=== PATIENT | male | born 1970 | race Two or more races ===

== ENCOUNTER → 2016-08-30 | Outpatient (CLI) | payer BC | LOC: M WUC 18:12 | PROVIDERS: ATTEND Physician Assistant | DX: M79.674 Pain in right toe(s) (principal) ==

== ENCOUNTER → 2016-09-02 | Outpatient (CLI) | payer BC ==
[2016-09-02 12:33] LABS: BASO % 0.3 % (0.0-1.0); EOS # 0.1 K/mm3 (0.0-0.50); EOS % 1.3 % (0.0-3.0); LARGE UNSTAINED CELL # 0.1 K/mm3 (0.0-0.4); LARGE UNSTAINED CELL % 1.7 % (0.0-4.0); LYMPH # 1.7 K/mm3 (1.5-4.5); LYMPH % 22.1 % (24.0-44.0); MEAN CORPUSCULAR HGB CONC 35.7 g/dl (32.0-36.5); MEAN CORPUSCULAR VOLUME 89.7 fl (80.0-96.0); MONO # 0.4 K/mm3 (0.0-0.8); MONO % 6.1 % (0.0-5.0); NEUTROPHILS # 4.8 K/mm3 (1.8-7.7); NEUTROPHILS % 68.5 % (36.0-66.0); PLATELET COUNT, AUTOMATED 162 k/mm3 (150-450); RED CELL DISTRIBUTION WIDTH 12.8 % (11.5-14.5)
== END ==
LOC: M WUC 09:04
PROVIDERS: ATTEND Physician Assistant
DX: M79.674 Pain in right toe(s) (principal)

== ENCOUNTER → 2025-01-10 | Outpatient (CLI) | payer OTHER | LOC: M RAD 07:23 | PROVIDERS: ATTEND Physician Assistant | DX: M17.12 Unilateral primary osteoarthritis, left knee (principal); M71.22 Synovial cyst of popliteal space [Baker], left knee ==